=== PATIENT | female | born 1995 | race Caucasian/White ===

== ENCOUNTER 2023-07-20 01:21 | Emergency (ER) | payer OTHER ==
[~2023-07-20] VITALS: Ht 162.6 cm; Wt 72.6 kg
[2023-07-20 01:25] VITALS: BP 117/61; PULSE 119; RESP 20; TEMP 97.4; O2SAT 99
[2023-07-20 03:00] LABS: BASOPHILS % (AUTO) 0.3 % (0.0-2.0); EOSINOPHILS # (AUTO) 0.1 K/uL (0-0.4); EOSINOPHILS % (AUTO) 0.9 % (0.0-4.0); HEMATOCRIT 37.8 % (36-48); HEMOGLOBIN 12.8 g/dL (12.0-16.0); LYMPHOCYTES # (AUTO) 2.1 K/uL (2.5-16.5); MEAN CORPUSCULAR HEMOGLOBIN 29 pg (27-31); MEAN CORPUSCULAR HGB CONC 34 g/dL (33-37); MEAN CORPUSCULAR VOLUME 84.2 fL (80-94); MONOCYTES # (AUTO) 1.2 K/uL (0.8-1.0); NEUTROPHILS # (AUTO) 11.8 K/uL (1.8-7.7); NEUTROPHILS % (AUTO) 76.8 % (42.2-75.2); PLATELET COUNT (AUTO) 320 K/uL (140-450); RED CELL DISTRIBUTION WIDTH 14.6 % (11.6-13.7); WHITE BLOOD COUNT (AUTO) 15.4 K/uL (4.8-10.8)
[2023-07-20 03:07] LABS: APPEARANCE,URINE CLEAR (CLEAR); BILIRUBIN,URINE NEGATIVE (NEGATIVE); BLOOD, URINE NEGATIVE (NEGATIVE); COLOR,URINE YELLOW (YELLOW); LEUKOCYTE ESTERASE ,URINE NEGATIVE (NEGATIVE); NITRITE, URINE NEGATIVE (NEGATIVE); PH,URINE 6.5 (5.0-9.0); PROTEIN,URINE NEGATIVE (NEGATIVE); UGLUCOSE NEGATIVE (NEGATIVE); UROBILINOGEN,URINE 0.2 EU/dL (0.2 - 1)
[2023-07-20 03:23] LABS: AMPHETAMINE, URINE NEGATIVE ng/ml (NEG <=1000); BARBITURATE, URINE NEGATIVE ng/ml (NEG <=200); BENZODIAZEPINE, URINE NEGATIVE ng/mL (NEG <=200); CANNABINOID, URINE NEGATIVE ng/mL (NEG <=50); COCAINE, URINE NEGATIVE ng/mL (NEG <=300); OPIATE, URINE NEGATIVE ng/mL (NEG <=2000); PHENCYCLIDINE SCREEN,URINE NEGATIVE ng/mL (NEG <=25)
[2023-07-20 03:30] LABS: ALBUMIN 3.7 g/dL (3.4-5.0); ALCOHOL, BLOOD < 3 mg/dL (<10); ALKALINE PHOSPHATASE 137 U/L (50-136); ANION GAP 16.4 (8-16); CALCIUM 8.4 mg/dL (8.5-10.1); CHLORIDE 104 mmol/L (98-107); CREATINE KINASE, TOTAL 160 U/L (26-192); CREATININE 0.8 mg/dL (0.6-1.3); GFR ARICAN-AMERICAN 109 mL/min (>90); GFR NON ARICAN-AMERICAN 90 mL/min (>90); POTASSIUM 3.4 mmol/L (3.5-5.1); SODIUM SERUM 139 mmol/L (136-145); TOTAL BILIRUBIN 0.3 mg/dL (0.0-1.0); UREA NITROGEN, BLOOD 13 mg/dL (7-18)
[2023-07-20 03:53] LABS: ACETAMINOPHEN < 0.5 ug/ml (10-30); GLUCOSE 120 mg/dL (74-106); SALICYLATE < 2.8 mg/dL (2.8-20.0)
[2023-07-20 04:08] LABS: ALANINE AMINOTRANSFERASE 36 U/L (12-78); ASPARTATE AMINOTRANSFERASE 36 U/L (15-37); TOTAL PROTEIN, SERUM 7.2 g/dL (6.4-8.2)
[2023-07-20 05:03] VITALS: O2SAT 100
[2023-07-20] MEDS ORDERED: risperiDONE 1 MG TAB PO PRN (06:10)
[2023-07-20] MEDS: risperiDONE 1 MG TAB PO SCH ×2 (09:04→21:26)
[2023-07-21] VITALS (8 sets, daily range): BP systolic 103; BP diastolic 64; PULSE 60; RESP 14; TEMP 98.2; O2SAT 98–100
[2023-07-21] MEDS ORDERED: SERT100T PO (00:10)
[2023-07-21] MEDS ORDERED: BACL10TA4 PO (00:10)
[2023-07-21] MEDS ORDERED: GABA300C PO (00:10)
[2023-07-21] MEDS: risperiDONE 1 MG TAB PO SCH (09:55)
== END 2023-07-21 21:20 ==
LOC: EDBD 01:21 → MED 01:21
DX: S02.2XXA Fracture of nasal bones, initial encounter for closed fracture (principal); Z20.822 Contact with and (suspected) exposure to COVID-19; Y04.0XXA Assault by unarmed brawl or fight, initial encounter; Y92.89 Other specified places as the place of occurrence of the external cause; Y93.89 Activity, other specified; Y99.8 Other external cause status
CPT/HCPCS: 36415; 70450; 70486; 80053; 80305; 81003; 81025; 82550; 85025; 87426; 90471; 90715; 99285; G0480; G0482